=== PATIENT | female | born 1960 | race Caucasian/White ===

== ENCOUNTER 2024-04-17 08:37 | Emergency (ER) | payer OTHER ==
[~2024-04-17] VITALS: Ht 160 cm; Wt 74.8 kg
[2024-04-17] MEDS ORDERED: CefTRIAXone Sodium 1,000 MG in NS 50 ML IV ONE (10:00)
[2024-04-17] MEDS ORDERED: EUTHYROX50 MC1 (10:15)
[2024-04-17] MEDS ORDERED: CEPH500 PO (10:17)
[2024-04-17 10:34] VITALS: BP 142/79
== END 2024-04-17 10:34 | disposition home or self-care (01) ==
LOC: ER 08:37
DX: J34.0 Abscess, furuncle and carbuncle of nose (principal); K13.0 Diseases of lips; Z79.899 Other long term (current) drug therapy; Z88.2 Allergy status to sulfonamides
CPT/HCPCS: 96365; 99283-25; J0696

== ENCOUNTER → 2024-06-20 | Outpatient (CLI) | payer OTHER ==
[~2024-06-20] MED LIST: CEPH500 PO; EUTHYROX50 MC1
[2024-06-26 18:09] LABS: HPV HIGH RISK BY TMA Not Detected; HPV SOURCE Cervical
== END ==
LOC: LAB SHORT 17:11 → LAB 17:11
PROVIDERS: Registered Nurse
DX: Z01.419 Encounter for gynecological examination (general) (routine) without abnormal findings (principal)
CPT/HCPCS: 87624; G0123